=== PATIENT | male | born 1935 | race Caucasian/White ===

== ENCOUNTER 2017-04-05 11:15 | Observation (INO) | payer MEDICARE ==
[2017-04-02 10:35] VITALS: BP 135/85
[~2017-04-05] VITALS: Ht 172.7 cm; Wt 104.0 kg
[~2017-04-05 11:15] MED LIST: AMIO200T42 PO; ATOR10TA PO; CEFAZOLIN 1,000 MG ONE; CHOL500015 PO; CYAN500T2 PO; DEXAMETHASONE 4 MG/ML, 1ML ONE; FENTANYL PF 100 MCG/2ML ONE; GLIM2TAB2 PO; LISI-170 PO; METF10002 PO; METO-93 PO; MIDAZOLAM 1 MG/ML, 2ML ONE; ONDANSETRON 2MG/ML, 2ML ONE; PROPOFOL 10 MG/ML, 20ML ONE; PYGEUM PO; RANI150T4 PO; RIVA15TA PO; TAMS-11 PO
[2017-04-05] MEDS ORDERED: LACTATED RINGERS 1,000 ML IV SCH (12:01)
[2017-04-05] MEDS ORDERED: ACET-1600 PO (12:06)
[2017-04-05] MEDS ORDERED: LIDOCAINE 1%, 2ML SQ PRN (12:30)
[2017-04-05] MEDS ORDERED: METOPROLOL SUCCINATE 50 MG TAB.ER.24H PO ONE (13:00)
[2017-04-05] MEDS ORDERED: FENTANYL PF 100 MCG/2ML ONE ×2 (13:06→14:30)
[2017-04-05] MEDS ORDERED: MIDAZOLAM 1 MG/ML, 2ML ONE (13:06)
[2017-04-05] MEDS ORDERED: ONDANSETRON 2MG/ML, 2ML IVPush PRN ×2 (14:30→15:30)
[2017-04-05] MEDS ORDERED: ONDANSETRON 2MG/ML, 2ML ONE (14:30)
[2017-04-05] MEDS ORDERED: MIDAZOLAM 1 MG/ML, 2ML IV PRN (14:30)
[2017-04-05] MEDS ORDERED: PROMETHAZINE 25 MG/ML, 1ML IV PRN (14:30)
[2017-04-05] MEDS ORDERED: PROPOFOL 10 MG/ML, 20ML ONE (14:30)
[2017-04-05] MEDS ORDERED: MEPERIDINE/PF 25MG/0.5ML IVPush PRN (14:30)
[2017-04-05] MEDS ORDERED: ACETAMINOPHEN 325 MG TABLET PO PRN (14:30)
[2017-04-05] MEDS ORDERED: HYDROmorphone 1 MG/ML, 1ML IV PRN (14:30)
[2017-04-05] MEDS ORDERED: METOPROLOL 1 MG/ML, 5ML IV PRN (14:30)
[2017-04-05] MEDS ORDERED: hydrALAzine 20 MG/ML, 1ML IV PRN (14:30)
[2017-04-05] MEDS ORDERED: FENTANYL PF 100 MCG/2ML IV PRN (14:30)
[2017-04-05] MEDS ORDERED: CEFAZOLIN 1,000 MG ONE (14:30)
[2017-04-05] MEDS ORDERED: OXYcodone 5 MG/5 ML ORAL.SOL UDC PO PRN (14:30)
[2017-04-05] MEDS ORDERED: ALBUTEROL/IPRATROPIUM 2.5MG/0.5MG, 3 ML NPPB PRN (14:30)
[2017-04-05] MEDS ORDERED: DEXAMETHASONE 4 MG/ML, 1ML ONE (14:30)
[2017-04-05] MEDS ORDERED: ATORVASTATIN 10 MG TABLET PO SCH (18:00)
[2017-04-05] MEDS ORDERED: LORazepam 1MG TABLET PO ONE (18:00)
[2017-04-05] MEDS ORDERED: LORazepam 1MG TABLET PO PRN (18:00)
[2017-04-05] MEDS: POTASSIUM CHLORIDE 20 MEQ in D5%-0.9% NACL 1,000 ML IV SCH (18:09)
[2017-04-05 19:41] VITALS: BP 151/81
[2017-04-05] MEDS: OXYcodone/APAP 5/325MG TABLET PO PRN (20:18)
[2017-04-05] MEDS: LORazepam 1MG TABLET PO PRN (20:18)
[2017-04-06 00:24] VITALS: BP 148/83
[2017-04-06] MEDS: CIPROFLOXACIN/PMX 400MG/200ML 200 ML IVPB SCH ×2 (01:47→14:00)
[2017-04-06] MEDS: OXYcodone/APAP 5/325MG TABLET PO PRN (01:47)
[2017-04-06] MEDS: LORazepam 1MG TABLET PO PRN (01:47)
[2017-04-06] MEDS: POTASSIUM CHLORIDE 20 MEQ in D5%-0.9% NACL 1,000 ML IV SCH ×2 (03:28→15:06)
[2017-04-06 04:02] VITALS: BP 142/82
[2017-04-06 05:33] LABS: BLOOD UREA NITROGEN 17 mg/dL (7-18)
[2017-04-06] MEDS ORDERED: METOPROLOL SUCCINATE 50 MG TAB.ER.24H PO SCH (06:00)
[2017-04-06 06:44] VITALS: BP 150/84
[2017-04-06] MEDS ORDERED: GLIMEPIRIDE 1 MG TABLET PO SCH (08:00)
[2017-04-06] MEDS ORDERED: CHOLECALCIFEROL 1,000 UNIT TABLET PO SCH (09:00)
[2017-04-06] MEDS ORDERED: LISINOPRIL 20 MG TABLET PO SCH (09:00)
[2017-04-06] MEDS ORDERED: AMIODARONE 200 MG TABLET PO SCH (09:00)
[2017-04-06] MEDS ORDERED: TAMSULOSIN 0.4 MG CAP.ER.24H PO SCH (09:00)
[2017-04-06] MEDS ORDERED: metFORMIN 500 MG TABLET PO SCH (09:00)
[2017-04-06] MEDS ORDERED: CYANOCOBALAMIN 1,000 MCG TABLET PO SCH (09:00)
[2017-04-06] MEDS ORDERED: ACETAMINOPHEN 325 MG TABLET PO PRN (10:30)
[2017-04-06 13:12] VITALS: BP 152/79
== END 2017-04-06 16:30 | disposition home or self-care (01) ==
LOC: OUT 11:15 → EDIP 15:14 → ORIP 16:19 → 4NOR 16:55 → DCLOUNGE 04-06 16:15
PROVIDERS: ADMIT Urology; ATTEND Urology
DX: N40.1 Benign prostatic hyperplasia with lower urinary tract symptoms (principal); R31.0 Gross hematuria; R33.8 Other retention of urine
CPT/HCPCS: 36415; 52630; 80048; 82962; 85018; 88305; 93005; 96365; G0378; J0744; J1100; J2250; J2405; J2704; J3010; J3480; J7120; J0690; J7042